=== PATIENT | male | born 1965 | race Caucasian/White ===

== ENCOUNTER 2020-09-20 11:46 | Day surgery (SDC) | payer BC ==
[~2020-09-20] VITALS: Ht 185.4 cm; Wt 97.0 kg
[~2020-09-20 11:46] MED LIST: BUPIVAcaine/PF 2.5 mg/ml (0.25%) 30ml vial ONE; NO HOME MEDS; ceFAZolin 2gm in dextrose, iso 50 ML IV ONE; famotidine 20mg tablet PO ONE; ringers solution, lacted 1,000 ML IV SCH
[2020-09-20 12:00] VITALS: BP 148/76
[2020-09-20] MEDS ORDERED: proCHLORperazine 10 MG/2 ml inj IV PRN (12:40)
[2020-09-20] MEDS ORDERED: morphine 4 MG/ML inj SYRINge IV PRN (12:40)
[2020-09-20] MEDS ORDERED: morphine 2 MG/ML inj. syringe IV PRN (12:40)
[2020-09-20] MEDS ORDERED: ringers solution, lacted 1,000 ML IV SCH (12:40)
[2020-09-20] MEDS ORDERED: ondansetron/PF 4mg/2ml inj IV PRN (12:40)
[2020-09-20] MEDS ORDERED: meperidine/PF 25mg/ml syringe IV PRN ×3 (12:40)
[2020-09-20 13:12] LABS: BASOPHILS # (AUTO) 0.1 X10'3 (0-0.2); BASOPHILS % (AUTO) 0.8 % (0-1); EOSINOPHILS # (AUTO) 0.2 X10'3 (0-0.9); EOSINOPHILS % (AUTO) 2.3 % (0-6); LYMPHOCYTES # (AUTO) 1.6 X10'3 (1.1-4.8); LYMPHOCYTES % (AUTO) 20.2 % (21-51); MEAN CORPUSCULAR HEMOGLOBIN 30.7 PG (27.0-31.0); MEAN CORPUSCULAR HGB CONC 34.8 g/dL (33.0-36.5); MEAN CORPUSCULAR VOLUME 88.1 FL (78-98); MEAN PLATELET VOLUME 7.6 FL (7.4-10.4); MONOCYTES # (AUTO) 0.7 X10'3 (0-0.9); NEUTROPHILS # (AUTO) 5.5 X10'3 (1.8-7.7); NEUTROPHILS % (AUTO) 67.7 % (42-75); PRE OP HEMATOCRIT 44.1 % (42.0-52.0); PRE OP HEMOGLOBIN 15.4 g/dL (14.0-17.9); PRE OP PLATELET COUNT 237 X10'3 (140-440); RED CELL DISTRIBUTION WIDTH 12.4 % (11.5-14.5)
[2020-09-20 13:27] LABS: ALBUMIN 3.9 G/DL (3.4-5.0); ALBUMIN/GLOBULIN RATIO 1.1 (1.1-1.5); ALKALINE PHOSPHATASE 97 IU/L (46-116); BLOOD UREA NITROGEN 13 MG/DL (7-18); BUN/CREATININE RATIO 18.1 (5.4-32.0); CALCIUM 8.8 MG/DL (8.5-10.1); CHLORIDE 105 MMOL/L (99-107); CREATININE 0.72 MG/DL (0.60-1.10); PRE OP ALT 52 U/L (30-65); PRE OP ANION GAP 10 (8-16); PRE OP AST 26 U/L (10-37); PRE OP BILIRUB, TOTAL 0.6 MG/DL (0.0-1.0); PRE OP GLUCOSE 89 MG/DL (70-104); PRE OP POTASSIUM 3.6 MMOL/L (3.4-5.1); PRE OP SODIUM 141 MMOL/L (135-145); TOTAL CARBON DIOXIDE 25.8 MMOL/L (24-32); TOTAL PROTEIN 7.6 G/DL (6.4-8.2); eGFR > 90 ML/MIN
--- NOTE | 2020-09-20 14:31 | NUR ---
RAPID COVID SWAB POSITIVE. NOTIFIED OR STAFF, DR ANG CAME TO SPEAK WITH PT. HE UNDERSTANDS THE NEED TO QUARANTINE FOR 14 DAYS, WILL CONTACT PUBLIC HEALTH IF HE HAS QUESTIONS. PIV DCD CATH INTACT, DCD IN STABLE CONDITION.
== END 2020-09-20 14:54 | disposition home or self-care (01) ==
LOC: PAS 11:46
PROVIDERS: ATTEND Surgery
DX: K40.20 Bilateral inguinal hernia, without obstruction or gangrene, not specified as recurrent (principal); Z53.8 Procedure and treatment not carried out for other reasons; U07.1 COVID-19; Z72.89 Other problems related to lifestyle; Z82.49 Family history of ischemic heart disease and other diseases of the circulatory system
CPT/HCPCS: 36415; 80053; 85025; 87635; C9803; J3490; 93005; J7120